=== PATIENT | male | born 1970 | race Caucasian/White ===

== ENCOUNTER 2017-05-23 13:06 | Emergency (ER) | payer OTHER ==
[~2017-05-23] VITALS: Ht 172.7 cm; Wt 62.5 kg
[2017-05-23 14:03] LABS: BASOPHIL COUNT 0.1 K/uL (0-0.1); EOSINOPHIL (%) 4.4 % (0-5); EOSINOPHIL COUNT 0.4 K/uL (0-0.3); HEMATOCRIT 29.8 % (38.0-50.0); HEMOGLOBIN 9.7 G/DL (12.5-16.6); IMMATURE GRANULOCYTE (%) 1.5 % (0.0-0.7); LYMPHOCYTE (%) 9.6 % (15-42); LYMPHOCYTE COUNT 0.9 K/uL (1.0-2.8); MCH 29.7 PG (29.0-34.0); MCHC 32.6 G/DL (30.0-36.0); MCV 91.1 FL (86-99); MONOCYTE (%) 12.6 % (3-12); MONOCYTE COUNT 1.1 K/uL (0-0.8); NEUTROPHIL (%) 70.9 % (45-76); NEUTROPHIL COUNT 6.3 K/uL (1.8-6.4); PLATELET COUNT 325 K/uL (156-360); RBC DIS.WIDTH-CV 14.8 % (11.8-14.6); RBC DIS.WIDTH-SD 48.8 % (39-53); RED BLOOD COUNT 3.27 M/uL (4.00-5.50); WHITE BLOOD COUNT 8.9 K/uL (4.1-10.2)
[2017-05-23 14:11] LABS: CHLORIDE 100 mEq/L (99-109); POTASSIUM 3.5 mEq/L (3.7-5.4); SODIUM 137 mEq/L (136-147)
[2017-05-23 14:13] LABS: GLUCOSE 87 mg/dL (70-99)
[2017-05-23 14:17] LABS: CREATININE 2.7 mg/dL (0.6-1.3); GFR ESTIMATE (CALCULATED) 27 mL/min/ (58.99-99999)
[2017-05-23 14:18] LABS: UREA NITROGEN (BUN) 65 mg/dL (9-23)
[2017-05-23 17:29] LABS: APPEARANCE SL.HAZY ((CLEAR)); BILIRUBIN NEGATIVE; BLOOD MODERATE; COLOR YELLOW ((YELLOW)); GLUCOSE (STRIP) >=500; KETONES NEGATIVE; LEUKOCYTES LARGE; NITRITE NEGATIVE; PROTEIN (STRIP) 100; SPECIFIC GRAVITY 1.007 (1.000-1.030); UROBILINOGEN 0.2 MG/DL (0.2-1.0)
[2017-05-23 17:34] LABS: BACTERIA RARE /HPF; EPITHELIAL CELLS NONE SEEN /HPF; MUCUS TRACE /LPF; RED BLOOD CELLS 40-50 /HPF (0-5); UCUL ADDED? YES; WHITE BLOOD CELLS TNTC /HPF (0-5)
[2017-05-23] MEDS ORDERED: CIPRO500 MG PO (19:22)
[2017-05-23 22:07] VITALS: BP 177/97
== END 2017-05-23 22:26 ==
LOC: EME 13:06
PROVIDERS: Emergency Medicine
PROC: 0T9B70Z Drainage of Bladder with Drainage Device, Via Natural or Artificial Opening (ICD-10-PCS; principal; 2017-05-23)
DX: N39.0 Urinary tract infection, site not specified (principal); I12.0 Hypertensive chronic kidney disease with stage 5 chronic kidney disease or end stage renal disease; E11.22 Type 2 diabetes mellitus with diabetic chronic kidney disease; N18.6 End stage renal disease; T83.098A Other mechanical complication of other urinary catheter, initial encounter; Z99.2 Dependence on renal dialysis; G82.50 Quadriplegia, unspecified; Z99.11 Dependence on respirator [ventilator] status; E87.70 Fluid overload, unspecified; J90 Pleural effusion, not elsewhere classified; Z87.891 Personal history of nicotine dependence; J96.10 Chronic respiratory failure, unspecified whether with hypoxia or hypercapnia; J45.909 Unspecified asthma, uncomplicated; F32.9 Major depressive disorder, single episode, unspecified; K21.9 Gastro-esophageal reflux disease without esophagitis; Z86.73 Personal history of transient ischemic attack (TIA), and cerebral infarction without residual deficits
CPT/HCPCS: 74176; 80048; 81003; 85025; 87070; 87077; 87086 GA; 87147; 87186; 87205; 94002; 99281; 99285

== ENCOUNTER 2017-06-25 04:11 | Inpatient (IN) | payer OTHER ==
[~2017-06-25] VITALS: Ht 177.8 cm; Wt 63.7 kg
[~2017-06-25 04:11] MED LIST: CIPRO500 MG PO
[2017-06-25 04:44] LABS: BASE EXCESS 7.2 mEq/L (-3 to +3); CARBOXY HGB 2.4 % (0-5); METHEMOGLOBIN 0.9 % (0-1.5); PCO2 46 mm Hg (35-45); PO2 84 mm Hg (80-100); SITE LR; pH 7.45 (7.35-7.45)
[2017-06-25 04:45] LABS: COMMENTS - BLOOD GASES C+; DEVICE VENT; FI02 30 %; MECHANICAL RATE 12 resp/min; MODE SIMV; PEEP 5 CM/H20; PRES. SUPPORT 10 CM/H2O; TIDAL VOLUME 400 ML; TOTAL RESP RATE 17 resp/min
[2017-06-25 05:04] LABS: BASOPHIL (%) 0.8 % (0-1); BASOPHIL COUNT 0.1 K/uL (0-0.1); EOSINOPHIL (%) 7.5 % (0-5); EOSINOPHIL COUNT 0.8 K/uL (0-0.3); HEMATOCRIT 32.4 % (38.0-50.0); HEMOGLOBIN 10.4 G/DL (12.5-16.6); IMMATURE GRANULOCYTE (%) 0.7 % (0.0-0.7); LYMPHOCYTE COUNT 0.6 K/uL (1.0-2.8); MCH 30.1 PG (29.0-34.0); MCHC 32.1 G/DL (30.0-36.0); MCV 93.6 FL (86-99); MONOCYTE (%) 6.2 % (3-12); MONOCYTE COUNT 0.7 K/uL (0-0.8); NEUTROPHIL (%) 78.8 % (45-76); NEUTROPHIL COUNT 8.3 K/uL (1.8-6.4); PLATELET COUNT 227 K/uL (156-360); RBC DIS.WIDTH-CV 14.5 % (11.8-14.6); RBC DIS.WIDTH-SD 49.7 % (39-53); RED BLOOD COUNT 3.46 M/uL (4.00-5.50); WHITE BLOOD COUNT 10.5 K/uL (4.1-10.2)
[2017-06-25 05:09] LABS: APPEARANCE TURBID ((CLEAR)); BILIRUBIN NEGATIVE; BLOOD SMALL; COLOR YELLOW ((YELLOW)); GLUCOSE (STRIP) >=500; KETONES NEGATIVE; LEUKOCYTES LARGE; NITRITE NEGATIVE; PROTEIN (STRIP) >=500; SPECIFIC GRAVITY 1.013 (1.000-1.030); UROBILINOGEN 0.2 MG/DL (0.2-1.0)
[2017-06-25 05:16] LABS: ALBUMIN 2.6 g/dL (3.2-4.8)
[2017-06-25 05:17] LABS: CHLORIDE 92 mEq/L (99-109); POTASSIUM 4.4 mEq/L (3.7-5.4); SODIUM 132 mEq/L (136-147)
[2017-06-25 05:19] LABS: GLUCOSE 203 mg/dL (70-99); TOTAL PROTEIN 7.1 g/dL (6.4-8.3)
[2017-06-25 05:21] LABS: TOTAL BILIRUBIN 1.1 mg/dL (0.0-1.0)
[2017-06-25 05:22] LABS: ALKALINE PHOSPHATASE 1307 IU/L (3-129)
[2017-06-25 05:23] LABS: CREATININE 2.6 mg/dL (0.6-1.3); GFR ESTIMATE (CALCULATED) 29 mL/min/ (58.99-99999)
[2017-06-25 05:24] LABS: AST (GOT) 35 IU/L (2-34); UREA NITROGEN (BUN) 97 mg/dL (9-23)
[2017-06-25 05:25] LABS: ALT (GPT) 73 IU/L (3-49)
[2017-06-25 05:26] LABS: TROP-I INTERPRETATION NEGATIVE; TROPONIN-I 0.01 ng/mL (0.0-0.30)
[2017-06-25 05:33] LABS: WHITE BLOOD CELLS TNTC /HPF (0-5)
[2017-06-25 05:34] LABS: UCUL ADDED? YES
[2017-06-25 05:36] LABS: URINE COMMENT FIELD OBSCURED BY
[2017-06-25] MEDS ORDERED: NOVOLOG PE100 UNITS/ SC (07:46)
[2017-06-25] MEDS ORDERED: ZESTRIL10 MG GT (07:48)
[2017-06-25] MEDS ORDERED: CARDURA2 M1 GT (07:48)
[2017-06-25] MEDS ORDERED: JUVEN PACKET1 EAC1 GT (07:50)
[2017-06-25] MEDS ORDERED: NORVASC10 MG GT (07:52)
[2017-06-25] MEDS ORDERED: ZOFRAN4 MG GT (07:56)
[2017-06-25] MEDS ORDERED: PERIDEX473 ML MM (07:58)
[2017-06-25] MEDS ORDERED: RENVELA0.8 GM GT (07:59)
[2017-06-25] MEDS ORDERED: NEPRO CARB STE237 ML PO (08:00)
[2017-06-25 12:31] LABS: TROP-I INTERPRETATION NEGATIVE; TROPONIN-I 0.02 ng/mL (0.0-0.30)
[2017-06-25 17:04] VITALS: BP 152/82
[2017-06-25 18:15] LABS: TROP-I INTERPRETATION NEGATIVE; TROPONIN-I < 0.01 ng/mL (0.0-0.30)
[2017-06-25 19:00] VITALS: BP 152/73
[2017-06-25 22:00] VITALS: BP 159/83
[2017-06-25 23:00] VITALS: BP 163/82
[2017-06-26] VITALS (23 sets, daily range): BP systolic 125–167; BP diastolic 67–91
[2017-06-26 05:59] LABS: BASOPHIL COUNT 0.1 K/uL (0-0.1); EOSINOPHIL (%) 7.3 % (0-5); EOSINOPHIL COUNT 0.5 K/uL (0-0.3); HEMOGLOBIN 10.1 G/DL (12.5-16.6); LYMPHOCYTE (%) 9.2 % (15-42); LYMPHOCYTE COUNT 0.6 K/uL (1.0-2.8); MCH 29.6 PG (29.0-34.0); MCHC 31.6 G/DL (30.0-36.0); MCV 93.8 FL (86-99); MONOCYTE (%) 7.7 % (3-12); MONOCYTE COUNT 0.5 K/uL (0-0.8); NEUTROPHIL (%) 73.8 % (45-76); PLATELET COUNT 238 K/uL (156-360); RBC DIS.WIDTH-CV 14.6 % (11.8-14.6); RBC DIS.WIDTH-SD 49.9 % (39-53); RED BLOOD COUNT 3.41 M/uL (4.00-5.50); WHITE BLOOD COUNT 6.7 K/uL (4.1-10.2)
[2017-06-26 06:14] LABS: A/G RATIO 0.6 (1.1-1.8); ALBUMIN 2.4 G/DL (3.4-5.0); CHLORIDE 86 MEQ/L (99-109); CREATININE 2.9 MG/DL (0.6-1.3); GFR ESTIMATE (CALCULATED) 25 mL/min/ (58.99-99999); GLOBULINS 3.8 G/DL (2.3-3.5); GLUCOSE 175 mg/dL (70-99); TOTAL PROTEIN 6.2 G/DL (6.4-8.2); UREA NITROGEN (BUN) 95 mg/dL (9-23)
[2017-06-26 06:17] LABS: SODIUM 123 MEQ/L (136-147)
[2017-06-26 07:04] LABS: ALKALINE PHOSPHATASE 958 IU/L (3-129); ALT (GPT) 51 IU/L (3-49); AST (GOT) 21 IU/L (2-34); DIRECT BILIRUBIN 0.6 mg/dL (0.0-0.3); TOTAL BILIRUBIN 0.9 MG/DL (0.0-1.0)
[2017-06-26 08:52] LABS: ERTH.SED.RATE 71 MM/HR (0-15)
[2017-06-26 10:20] LABS: HEMOGLOBIN A1c (GLYCOHEMOGLOB) 5.5 % (Below 5.7)
[2017-06-26 11:06] LABS: ALBUMIN 2.4 G/DL (3.2-4.8); TOTAL PROTEIN 6.2 G/DL (6.4-8.3)
[2017-06-26 11:36] LABS: HEPATITIS B SURFACE ANTIBODY Nonreactive
[2017-06-27] VITALS (15 sets, daily range): BP systolic 136–158; BP diastolic 72–93
[2017-06-27 00:48] LABS: APPEARANCE TURBID ((CLEAR)); BILIRUBIN NEGATIVE; BLOOD MODERATE; COLOR AMBER ((YELLOW)); GLUCOSE (STRIP) >=500; KETONES NEGATIVE; LEUKOCYTES LARGE; NITRITE NEGATIVE; PROTEIN (STRIP) 100; SPECIFIC GRAVITY 1.007 (1.000-1.030); UROBILINOGEN 0.2 MG/DL (0.2-1.0)
[2017-06-27 01:09] LABS: EPITHELIAL CELLS NONE SEEN /HPF; RED BLOOD CELLS 20-30 /HPF (0-5); WHITE BLOOD CELLS TNTC /HPF (0-5)
[2017-06-27 01:10] LABS: BACTERIA 2+ /HPF; MUCUS RARE /LPF
[2017-06-27 05:06] LABS: BASOPHIL COUNT 0.1 K/uL (0-0.1); EOSINOPHIL COUNT 0.6 K/uL (0-0.3); HEMATOCRIT 31.8 % (38.0-50.0); HEMOGLOBIN 10.2 G/DL (12.5-16.6); IMMATURE GRANULOCYTE (%) 1.2 % (0.0-0.7); LYMPHOCYTE (%) 10.5 % (15-42); LYMPHOCYTE COUNT 0.9 K/uL (1.0-2.8); MCH 29.9 PG (29.0-34.0); MCHC 32.1 G/DL (30.0-36.0); MCV 93.3 FL (86-99); MONOCYTE (%) 9.8 % (3-12); MONOCYTE COUNT 0.8 K/uL (0-0.8); NEUTROPHIL (%) 70.5 % (45-76); NEUTROPHIL COUNT 5.8 K/uL (1.8-6.4); PLATELET COUNT 248 K/uL (156-360); RBC DIS.WIDTH-CV 14.7 % (11.8-14.6); RBC DIS.WIDTH-SD 49.3 % (39-53); RED BLOOD COUNT 3.41 M/uL (4.00-5.50); WHITE BLOOD COUNT 8.3 K/uL (4.1-10.2)
[2017-06-27 05:44] LABS: CHLORIDE 96 mEq/L (99-109); POTASSIUM 3.7 mEq/L (3.7-5.4)
[2017-06-27 05:45] LABS: MAGNESIUM 1.9 mg/dL (1.3-2.7)
[2017-06-27 05:46] LABS: GLUCOSE 178 mg/dL (70-99)
[2017-06-27 05:47] LABS: SODIUM 131 mEq/L (136-147)
[2017-06-27 05:50] LABS: GFR ESTIMATE (CALCULATED) 36 mL/min/ (58.99-99999); PHOSPHORUS 4.2 mg/dL (2.5-4.9)
[2017-06-27 05:51] LABS: UREA NITROGEN (BUN) 49 mg/dL (9-23)
[2017-06-27 05:58] LABS: CREATININE 2.1 mg/dL (0.6-1.3)
[2017-06-27 11:20] LABS: C DIFF TOXIN NEGATIVE (NEGATIVE)
[2017-06-27 12:53] LABS: URINE TOTAL PROTEIN 646 MG/DL (0-10)
[2017-06-27 15:40] LABS: ANTI-SMOOTH MUSCLE (Actin)+ 28 U (<20); MITOCHONDRIAL (M2) ANTIBODIES+ <=20.0 U (<=20.0)
[2017-06-28 07:57] LABS: ALBUMIN 2.29 G/DL (3.6-4.9); ALPHA-1 GLOBULIN 0.37 G/DL (0.15-0.40); ALPHA-2 GLOBULIN 0.67 G/DL (0.45-0.85); BETA-GLOBULIN 0.87 G/DL (0.65-1.15)
[2017-07-12] MEDS ORDERED: FULL SPECTRUM0.8 MG PO (11:33)
[2017-07-12] MEDS ORDERED: CARDURA2 M1 GT (11:34)
[2017-07-12] MEDS ORDERED: FULL SPECTRUM0.8 MG GT (11:34)
[2017-07-12] MEDS ORDERED: CULTURELLE CAP1 EACH GT (11:35)
[2017-07-12] MEDS ORDERED: FLOMAX0.4 MG GT (11:36)
[2017-07-12] MEDS ORDERED: BACLOFEN10 MG GT (11:37)
[2017-07-12] MEDS ORDERED: NEURONTIN100 MG GT (11:37)
[2017-07-12] MEDS ORDERED: KEPPRA100 MG/1 M GT (11:38)
[2017-07-12] MEDS ORDERED: ACID CONTROLLER20 MG GT (11:38)
[2017-07-12] MEDS ORDERED: LANTUS 10100 UNITS/ SC (11:42)
[2017-07-12] MEDS ORDERED: NOVOLOG 10100 UNITS/ SC (11:43)
== END 2017-06-27 15:47 | disposition designated cancer center or children's hospital (05) | DRG 689 ==
LOC: EME → EDBD 04:11 → EDOF 08:11 → ENRESERV 08:11 → 4WEST 08:11 → ENRESERV 08:28 → 4WEST 16:51
PROVIDERS: Emergency Medicine; Internal Medicine; Internal Medicine Critical Care Medicine; Internal Medicine Gastroenterology; Internal Medicine Nephrology; Obstetrics & Gynecology
DX: N39.0 Urinary tract infection, site not specified (principal); G93.41 Metabolic encephalopathy; D63.1 Anemia in chronic kidney disease; E10.22 Type 1 diabetes mellitus with diabetic chronic kidney disease; Z93.1 Gastrostomy status; Z93.0 Tracheostomy status; Z99.11 Dependence on respirator [ventilator] status; Z99.2 Dependence on renal dialysis; N18.6 End stage renal disease; Z79.4 Long term (current) use of insulin; Z87.440 Personal history of urinary (tract) infections; J96.10 Chronic respiratory failure, unspecified whether with hypoxia or hypercapnia; F32.9 Major depressive disorder, single episode, unspecified; G37.2 Central pontine myelinolysis; I12.0 Hypertensive chronic kidney disease with stage 5 chronic kidney disease or end stage renal disease; D80.1 Nonfamilial hypogammaglobulinemia; J90 Pleural effusion, not elsewhere classified; K80.21 Calculus of gallbladder without cholecystitis with obstruction; H54.7 Unspecified visual loss; E87.1 Hypo-osmolality and hyponatremia; Z87.891 Personal history of nicotine dependence; E87.0 Hyperosmolality and hypernatremia; G82.50 Quadriplegia, unspecified; I69.30 Unspecified sequelae of cerebral infarction; K21.9 Gastro-esophageal reflux disease without esophagitis; R18.8 Other ascites; J45.909 Unspecified asthma, uncomplicated
CPT/HCPCS: 36600; 70450; 71045; 71250; 74176; 76705; 80048; 80053; 80076; 81003; 82140; 82803; 82948; 83036; 83516 90; 83605; 83735; 84100; 84165; 84166; 84484; 85025; 85027; 85652; 86038; 86235; 86256 90; 86706; 87040; 87070; 87077; 87081; 87086; 87106; 87147; 87186; 87205; 87493; 87641; 93005; 94002; 94003; 94760; 95819; 99202; 99281; 99285; A6214; J0696; J1644; J1940; J7040

== ENCOUNTER 2017-07-01 10:37 | Emergency (ER) | payer OTHER ==
[~2017-07-01] VITALS: Ht 177.8 cm; Wt 60.1 kg
[~2017-07-01 10:37] MED LIST changes: +CARDURA2 M1 GT; +JUVEN PACKET1 EAC1 GT; +NEPRO CARB STE237 ML PO; +NORVASC10 MG GT; +NOVOLOG PE100 UNITS/ SC; +PERIDEX473 ML MM; +RENVELA0.8 GM GT; +ZESTRIL10 MG GT; +ZOFRAN4 MG GT
[2017-07-01 11:03] LABS: BASE EXCESS 7.3 mEq/L (-3 to +3); CARBOXY HGB 2.3 % (0-5); METHEMOGLOBIN 1.2 % (0-1.5); PCO2 45 mm Hg (35-45); PO2 76 mm Hg (80-100); pH 7.46 (7.35-7.45)
[2017-07-01 11:05] LABS: COMMENTS - BLOOD GASES A+C+; DEVICE 980; FI02 28 %; MECHANICAL RATE 12 resp/min; MODE SIMV; SITE LR
[2017-07-01 11:06] LABS: PEEP 5 CM/H20; PRES. SUPPORT 10 CM/H2O; TIDAL VOLUME 400 ML; TOTAL RESP RATE 15 resp/min
[2017-07-01 11:18] LABS: BASOPHIL (%) 1.1 % (0-1); BASOPHIL COUNT 0.1 K/uL (0-0.1); EOSINOPHIL (%) 10.2 % (0-5); HEMATOCRIT 34.8 % (38.0-50.0); IMMATURE GRANULOCYTE (%) 1.3 % (0.0-0.7); LYMPHOCYTE (%) 8.1 % (15-42); LYMPHOCYTE COUNT 0.8 K/uL (1.0-2.8); MCH 29.7 PG (29.0-34.0); MCHC 31.6 G/DL (30.0-36.0); MCV 94.1 FL (86-99); MONOCYTE (%) 8.4 % (3-12); MONOCYTE COUNT 0.8 K/uL (0-0.8); NEUTROPHIL (%) 70.9 % (45-76); NEUTROPHIL COUNT 6.6 K/uL (1.8-6.4); PLATELET COUNT 206 K/uL (156-360); RBC DIS.WIDTH-CV 14.8 % (11.8-14.6); RBC DIS.WIDTH-SD 50.6 % (39-53); WHITE BLOOD COUNT 9.3 K/uL (4.1-10.2)
[2017-07-01 11:26] LABS: ALBUMIN 2.7 g/dL (3.2-4.8); INTER. NORMALIZED RATIO 1.1
[2017-07-01 11:27] LABS: CHLORIDE 91 mEq/L (99-109); SODIUM 131 mEq/L (136-147)
[2017-07-01 11:28] LABS: PTT 34.3 SEC (25-37)
[2017-07-01 11:29] LABS: GLUCOSE 222 mg/dL (70-99); TOTAL PROTEIN 7.4 g/dL (6.4-8.3)
[2017-07-01 11:33] LABS: CREATININE 2.3 mg/dL (0.6-1.3); GFR ESTIMATE (CALCULATED) 33 mL/min/ (58.99-99999)
[2017-07-01 11:34] LABS: AST (GOT) 21 IU/L (2-34); UREA NITROGEN (BUN) 62 mg/dL (9-23)
[2017-07-01 11:35] LABS: ALT (GPT) 45 IU/L (3-49)
[2017-07-01 11:36] LABS: CREATINE KINASE 18 IU/L (1-294); TOTAL CK 18 IU/L (1-294)
[2017-07-01 11:38] LABS: ALKALINE PHOSPHATASE 882 IU/L (3-129); TOTAL BILIRUBIN 0.7 mg/dL (0.0-1.0); TROP-I INTERPRETATION NEGATIVE; TROPONIN-I 0.02 ng/mL (0.0-0.30)
[2017-07-01 11:41] LABS: CK-MB 2.9 ng/mL (0.0-4.9); CKMB RELATIVE INDEX 16.1 (0.0-3.9)
[2017-07-01 16:40] VITALS: BP 142/81
== END 2017-07-01 16:41 ==
LOC: EME → EDBD 10:37 → EME 16:41
PROVIDERS: Emergency Medicine
DX: J90 Pleural effusion, not elsewhere classified (principal); G82.50 Quadriplegia, unspecified; Z93.0 Tracheostomy status; Z99.11 Dependence on respirator [ventilator] status; R40.3 Persistent vegetative state; Z93.1 Gastrostomy status; E11.22 Type 2 diabetes mellitus with diabetic chronic kidney disease; I12.0 Hypertensive chronic kidney disease with stage 5 chronic kidney disease or end stage renal disease; N18.6 End stage renal disease; Z99.2 Dependence on renal dialysis; Z86.73 Personal history of transient ischemic attack (TIA), and cerebral infarction without residual deficits; Z79.4 Long term (current) use of insulin; Z87.891 Personal history of nicotine dependence
CPT/HCPCS: 36600; 70450; 70551; 71045; 80053; 82550; 82553; 82803; 84484; 85025; 85610; 85730; 87070; 87077; 87147; 87186; 87205; 93005; 94002; 99281; 99285

== ENCOUNTER 2017-07-11 14:33 | Emergency (ER) | payer OTHER ==
[~2017-07-11] VITALS: Ht 167.6 cm; Wt 59.2 kg
[2017-07-11 16:51] LABS: BASOPHIL (%) 0.9 % (0-1); BASOPHIL COUNT 0.1 K/uL (0-0.1); EOSINOPHIL (%) 6.7 % (0-5); EOSINOPHIL COUNT 0.6 K/uL (0-0.3); HEMATOCRIT 35.4 % (38.0-50.0); HEMOGLOBIN 11.4 G/DL (12.5-16.6); IMMATURE GRANULOCYTE (%) 1.5 % (0.0-0.7); LYMPHOCYTE (%) 8.8 % (15-42); LYMPHOCYTE COUNT 0.7 K/uL (1.0-2.8); MCH 30.5 PG (29.0-34.0); MCHC 32.2 G/DL (30.0-36.0); MCV 94.7 FL (86-99); MONOCYTE (%) 13.5 % (3-12); MONOCYTE COUNT 1.1 K/uL (0-0.8); NEUTROPHIL (%) 68.6 % (45-76); NEUTROPHIL COUNT 5.8 K/uL (1.8-6.4); PLATELET COUNT 226 K/uL (156-360); RBC DIS.WIDTH-CV 15.4 % (11.8-14.6); RBC DIS.WIDTH-SD 53.5 % (39-53); RED BLOOD COUNT 3.74 M/uL (4.00-5.50); WHITE BLOOD COUNT 8.5 K/uL (4.1-10.2)
[2017-07-11 16:56] LABS: INTER. NORMALIZED RATIO 1.2
[2017-07-11 17:00] LABS: ALBUMIN 2.7 g/dL (3.2-4.8); CHLORIDE 91 mEq/L (99-109); POTASSIUM 4.5 mEq/L (3.7-5.4); SODIUM 131 mEq/L (136-147)
[2017-07-11 17:02] LABS: GLUCOSE 122 mg/dL (70-99); TOTAL PROTEIN 7.5 g/dL (6.4-8.3)
[2017-07-11 17:04] LABS: TOTAL BILIRUBIN 0.7 mg/dL (0.0-1.0)
[2017-07-11 17:06] LABS: ALKALINE PHOSPHATASE 911 IU/L (3-129); CREATININE 2.9 mg/dL (0.6-1.3); GFR ESTIMATE (CALCULATED) 25 mL/min/ (58.99-99999)
[2017-07-11 17:07] LABS: UREA NITROGEN (BUN) 97 mg/dL (9-23)
[2017-07-11 17:08] LABS: AST (GOT) 49 IU/L (2-34)
[2017-07-11 17:09] LABS: ALT (GPT) 107 IU/L (3-49)
[2017-07-11 17:12] LABS: TROP-I INTERPRETATION NEGATIVE; TROPONIN-I < 0.01 ng/mL (0.0-0.30)
[2017-07-11 17:20] LABS: APPEARANCE TURBID ((CLEAR)); BILIRUBIN NEGATIVE; BLOOD SMALL; COLOR YELLOW ((YELLOW)); GLUCOSE (STRIP) NEGATIVE; KETONES NEGATIVE; LEUKOCYTES LARGE; NITRITE NEGATIVE; PROTEIN (STRIP) >=500; SPECIFIC GRAVITY 1.019 (1.000-1.030); UROBILINOGEN 0.2 MG/DL (0.2-1.0)
[2017-07-11 17:54] LABS: UCUL ADDED? YES; WHITE BLOOD CELLS TNTC /HPF (0-5)
[2017-07-11] MEDS ORDERED: AZITHROMYC200 MG/5 M PO (18:21)
[2017-07-11] MEDS ORDERED: CEFIXIME200 MG/5 M PO (18:21)
[2017-07-11 22:27] VITALS: BP 125/75
[2017-07-12] MEDS ORDERED: FULL SPECTRUM0.8 MG PO (11:33)
[2017-07-12] MEDS ORDERED: CARDURA2 M1 GT (11:34)
[2017-07-12] MEDS ORDERED: FULL SPECTRUM0.8 MG GT (11:34)
[2017-07-12] MEDS ORDERED: CULTURELLE CAP1 EACH GT (11:35)
[2017-07-12] MEDS ORDERED: FLOMAX0.4 MG GT (11:36)
[2017-07-12] MEDS ORDERED: NEURONTIN100 MG GT (11:37)
[2017-07-12] MEDS ORDERED: BACLOFEN10 MG GT (11:37)
[2017-07-12] MEDS ORDERED: ACID CONTROLLER20 MG GT (11:38)
[2017-07-12] MEDS ORDERED: KEPPRA100 MG/1 M GT (11:38)
[2017-07-12] MEDS ORDERED: LANTUS 10100 UNITS/ SC (11:42)
[2017-07-12] MEDS ORDERED: NOVOLOG 10100 UNITS/ SC (11:43)
== END 2017-07-11 22:29 ==
LOC: EME 14:33
PROVIDERS: Emergency Medicine Emergency Medical Services
DX: J01.30 Acute sphenoidal sinusitis, unspecified (principal); J69.0 Pneumonitis due to inhalation of food and vomit; N39.0 Urinary tract infection, site not specified; F03.90 Unspecified dementia, unspecified severity, without behavioral disturbance, psychotic disturbance, mood disturbance, and anxiety; K80.20 Calculus of gallbladder without cholecystitis without obstruction; J90 Pleural effusion, not elsewhere classified; J44.9 Chronic obstructive pulmonary disease, unspecified; G82.50 Quadriplegia, unspecified; Z93.0 Tracheostomy status; Z93.1 Gastrostomy status; K21.9 Gastro-esophageal reflux disease without esophagitis; I12.9 Hypertensive chronic kidney disease with stage 1 through stage 4 chronic kidney disease, or unspecified chronic kidney disease; N18.9 Chronic kidney disease, unspecified; R56.9 Unspecified convulsions; F32.9 Major depressive disorder, single episode, unspecified; Z86.73 Personal history of transient ischemic attack (TIA), and cerebral infarction without residual deficits; Z87.891 Personal history of nicotine dependence; Z87.440 Personal history of urinary (tract) infections
CPT/HCPCS: 70450; 71045; 74176; 80053; 81003; 83605; 83880; 84484; 85025; 85610; 85730; 87040; 87086; 87106; 93005; 94002; 99281; 99285; J0456; J0696; J7040

== ENCOUNTER → 2017-07-12 | Outpatient (CLI) | payer OTHER ==
[~2017-07-12] MED LIST changes: +ACID CONTROLLER20 MG GT; +AZITHROMYC200 MG/5 M PO; +BACLOFEN10 MG GT; +CEFIXIME200 MG/5 M PO; +CULTURELLE CAP1 EACH GT; +FLOMAX0.4 MG GT; +FULL SPECTRUM0.8 MG GT; +FULL SPECTRUM0.8 MG PO; +KEPPRA100 MG/1 M GT; +LANTUS 10100 UNITS/ SC; +NEURONTIN100 MG GT; +NOVOLOG 10100 UNITS/ SC
[2017-07-12 12:16] LABS: TYPE OF FLUID PLEURAL
[2017-07-12 12:42] LABS: APPEARANCE SL. HAZY-YELLOW; BODY FLUID RBC'S 1000 /MM^3 (0-100); BODY FLUID WBC'S 660 /MM^3 (0-500)
[2017-07-12 13:13] LABS: BODY FLUID EOSINOPHILS 79 % (0-25); MONONUCLEAR WBC'S 4 %; POLYNUCLEAR WBC'S 17 % (0-25)
[2017-07-12 13:14] LABS: BODY FLUID GLUCOSE 147 MG/DL; BODY FLUID LDH 111 IU/L
[2017-07-12 13:15] LABS: GLUCOSE 130 mg/dL (70-99); LACTATE DEHYDROGENASE 150 IU/L (20-246); TOTAL PROTEIN 7.5 G/DL (6.4-8.3)
== END | disposition designated cancer center or children's hospital (05) ==
LOC: RAD 10:59 → EDSTATUS 11:00 → RAD 11:00
PROVIDERS: Internal Medicine
PROC: 0W993ZZ Drainage of Right Pleural Cavity, Percutaneous Approach (ICD-10-PCS; principal; 2017-07-12)
DX: J90 Pleural effusion, not elsewhere classified (principal); J96.01 Acute respiratory failure with hypoxia
CPT/HCPCS: 76942; 82945; 82947; 83615; 83615 91; 84155; 84157; 87070; 87116; 87205; 87206; 88108; 88305; 89051; 94799

== ENCOUNTER 2017-07-27 10:38 | Inpatient (IN) | payer OTHER ==
[~2017-07-27] VITALS: Ht 167.6 cm; Wt 59.0 kg
[~2017-07-27 10:38] MED LIST changes: +ZOFRAN ODT4 MG GT; -ZOFRAN4 MG GT
[2017-07-27 11:11] LABS: BASOPHIL (%) 0.5 % (0-1); BASOPHIL COUNT 0.1 K/uL (0-0.1); EOSINOPHIL (%) 3.7 % (0-5); EOSINOPHIL COUNT 0.5 K/uL (0-0.3); HEMATOCRIT 34.5 % (38.0-50.0); HEMOGLOBIN 10.9 G/DL (12.5-16.6); LYMPHOCYTE (%) 6.2 % (15-42); LYMPHOCYTE COUNT 0.8 K/uL (1.0-2.8); MCH 29.9 PG (29.0-34.0); MCHC 31.6 G/DL (30.0-36.0); MCV 94.5 FL (86-99); NEUTROPHIL (%) 79.6 % (45-76); NEUTROPHIL COUNT 10.2 K/uL (1.8-6.4); PLATELET COUNT 185 K/uL (156-360); RBC DIS.WIDTH-SD 48.7 % (39-53); RED BLOOD COUNT 3.65 M/uL (4.00-5.50); WHITE BLOOD COUNT 12.8 K/uL (4.1-10.2)
[2017-07-27 11:20] LABS: ALBUMIN 2.2 g/dL (3.2-4.8); CHLORIDE 100 mEq/L (99-109); INTER. NORMALIZED RATIO 1.4; POTASSIUM 4.1 mEq/L (3.7-5.4); SODIUM 133 mEq/L (136-147)
[2017-07-27 11:23] LABS: GLUCOSE 161 mg/dL (70-99); TOTAL PROTEIN 6.8 g/dL (6.4-8.3)
[2017-07-27 11:25] LABS: TOTAL BILIRUBIN 4.7 mg/dL (0.0-1.0)
[2017-07-27 11:26] LABS: ALKALINE PHOSPHATASE 2450 IU/L (3-129); CREATININE 1.7 mg/dL (0.6-1.3); GFR ESTIMATE (CALCULATED) 47 mL/min/ (58.99-99999)
[2017-07-27 11:27] LABS: UREA NITROGEN (BUN) 51 mg/dL (9-23)
[2017-07-27 11:28] LABS: AST (GOT) 69 IU/L (2-34)
[2017-07-27 11:29] LABS: ALT (GPT) 122 IU/L (3-49)
[2017-07-27 11:30] LABS: LIPASE 83 U/L (1.0-51.0)
[2017-07-27] MEDS ORDERED: QUESTRAN PACKET4 GM GT (15:28)
[2017-07-27] MEDS ORDERED: FLUCONAZOL40 MG/1 ML GT (15:29)
[2017-07-27] MEDS ORDERED: CATAPRES0.2 MG PO (15:30)
[2017-07-27] MEDS ORDERED: CARVEDILOL25 MG GT (15:31)
[2017-07-27] MEDS ORDERED: PAIN RELIE160 MG/52 GT (15:32)
[2017-07-27] MEDS ORDERED: DUONEB 2.5-0.5 M3 ML AEROSOL (15:42)
[2017-07-27] MEDS ORDERED: SANTYL30 GM TP (15:44)
[2017-07-27 16:15] VITALS: BP 112/71
[2017-07-27 16:30] VITALS: BP 117/71
[2017-07-27 20:00] VITALS: BP 119/71
[2017-07-27 22:00] VITALS: BP 107/65
[2017-07-28] VITALS (16 sets, daily range): BP systolic 97–134; BP diastolic 56–75
[2017-07-28 05:28] LABS: HEMATOCRIT 33.6 % (38.0-50.0); HEMOGLOBIN 10.6 G/DL (12.5-16.6); MCH 29.6 PG (29.0-34.0); MCHC 31.5 G/DL (30.0-36.0); MCV 93.9 FL (86-99); PLATELET COUNT 203 K/uL (156-360); RBC DIS.WIDTH-CV 14.4 % (11.8-14.6); RBC DIS.WIDTH-SD 48.6 % (39-53); RED BLOOD COUNT 3.58 M/uL (4.00-5.50); WHITE BLOOD COUNT 10.6 K/uL (4.1-10.2)
[2017-07-28 06:10] LABS: ALBUMIN 2.1 G/DL (3.2-4.8); ALKALINE PHOSPHATASE 2274 IU/L (3-129); ALT (GPT) 121 IU/L (3-49); AST (GOT) 87 IU/L (2-34); CHLORIDE 97 MEQ/L (99-109); DIRECT BILIRUBIN 4.4 mg/dL (0.0-0.3); GFR ESTIMATE (CALCULATED) 30 mL/min/ (58.99-99999); POTASSIUM 4.2 MEQ/L (3.7-5.4); SODIUM 130 MEQ/L (136-147); TOTAL BILIRUBIN 5.9 MG/DL (0.0-1.0); TOTAL PROTEIN 6.2 G/DL (6.4-8.3); UREA NITROGEN (BUN) 64 mg/dL (9-23)
[2017-07-28 06:11] LABS: CREATININE 2.5 MG/DL (0.6-1.3); GLUCOSE 86 mg/dL (70-99)
[2017-07-28 21:41] LABS: C DIFF TOXIN NEGATIVE (NEGATIVE)
[2017-07-29] VITALS (9 sets, daily range): BP systolic 115–126; BP diastolic 62–72
[2017-07-29 05:44] LABS: HEMATOCRIT 34.9 % (38.0-50.0); HEMOGLOBIN 11.3 G/DL (12.5-16.6); MCH 30.1 PG (29.0-34.0); MCHC 32.4 G/DL (30.0-36.0); MCV 93.1 FL (86-99); PLATELET COUNT 216 K/uL (156-360); RBC DIS.WIDTH-CV 14.6 % (11.8-14.6); RBC DIS.WIDTH-SD 48.9 % (39-53); RED BLOOD COUNT 3.75 M/uL (4.00-5.50)
[2017-07-29 06:10] LABS: ABS NEUTROPHIL COUNT 8.2; ANISOCYTOSIS 2+; BAND NEUTROPHILS 0.9 % (0-8.0); EOSINOPHIL ABS CT 0; LYMPHOCYTES 3.5 % (15.0-45.0); MACROCYTES 2+; METAMYELOCYTES 0.9 %; MONOCYTES 0.8 % (0-9.0); MYELOCYTES 3.5 %; PLAT.SUFFICIENCY ADEQUATE; SEG.NEUTROPHILS 90.4 % (46.0-76.0)
[2017-07-29 08:29] LABS: ALBUMIN 2.1 g/dL (3.2-4.8); CHLORIDE 102 mEq/L (99-109); SODIUM 133 mEq/L (136-147)
[2017-07-29 08:30] LABS: POTASSIUM 5.8 mEq/L (3.7-5.4)
[2017-07-29 08:31] LABS: TOTAL PROTEIN 6.4 g/dL (6.4-8.3)
[2017-07-29 08:34] LABS: GLUCOSE 196 mg/dL (70-99); TOTAL BILIRUBIN 7.8 mg/dL (0.0-1.0)
[2017-07-29 08:35] LABS: ALKALINE PHOSPHATASE 2700 IU/L (3-129); GFR ESTIMATE (CALCULATED) 22 mL/min/ (58.99-99999)
[2017-07-29 08:36] LABS: CREATININE 3.2 mg/dL (0.6-1.3); UREA NITROGEN (BUN) 82 mg/dL (9-23)
[2017-07-29 08:38] LABS: ALT (GPT) 146 IU/L (3-49); AST (GOT) 107 IU/L (2-34)
[2017-07-30] VITALS (8 sets, daily range): BP systolic 110–129; BP diastolic 66–84
[2017-07-30 04:48] LABS: HEMATOCRIT 34.4 % (38.0-50.0); MCH 29.4 PG (29.0-34.0); PLATELET COUNT 233 K/uL (156-360); RBC DIS.WIDTH-CV 14.7 % (11.8-14.6); RED BLOOD COUNT 3.74 M/uL (4.00-5.50); WHITE BLOOD COUNT 8.6 K/uL (4.1-10.2)
[2017-07-30 05:01] LABS: CHLORIDE 97 mEq/L (99-109); SODIUM 135 mEq/L (136-147)
[2017-07-30 05:03] LABS: GLUCOSE 272 mg/dL (70-99); POTASSIUM 4.1 mEq/L (3.7-5.4)
[2017-07-30 05:07] LABS: GFR ESTIMATE (CALCULATED) 31 mL/min/ (58.99-99999)
[2017-07-30 05:08] LABS: CREATININE 2.4 mg/dL (0.6-1.3); UREA NITROGEN (BUN) 64 mg/dL (9-23)
[2017-07-30 07:15] LABS: ABS NEUTROPHIL COUNT 7.3; ANISOCYTOSIS 1+; ATYPICAL LYMPHOCYTE 2.6 %; BAND NEUTROPHILS 9.6 % (0-8.0); BASOPHILS 0.9 %; EOSINOPHIL ABS CT 0; LYMPHOCYTES 4.3 % (15.0-45.0); MACROCYTES 1+; METAMYELOCYTES 1.7 %; MONOCYTES 0.9 % (0-9.0); MYELOCYTES 4.3 %; SEG.NEUTROPHILS 75.7 % (46.0-76.0)
[2017-07-30 11:21] LABS: HEPATITIS B SURFACE ANTIBODY Nonreactive; HEPATITIS B SURFACE ANTIGEN Nonreactive
[2017-07-31] VITALS (11 sets, daily range): BP systolic 97–129; BP diastolic 60–77
[2017-07-31 05:18] LABS: HEMATOCRIT 37.5 % (38.0-50.0); MCH 29.3 PG (29.0-34.0); MCV 91.5 FL (86-99); PLATELET COUNT 235 K/uL (156-360); RBC DIS.WIDTH-CV 14.8 % (11.8-14.6); RBC DIS.WIDTH-SD 48.3 % (39-53); WHITE BLOOD COUNT 6.8 K/uL (4.1-10.2)
[2017-07-31 05:45] LABS: CHLORIDE 96 MEQ/L (99-109); GFR ESTIMATE (CALCULATED) 22 mL/min/ (58.99-99999); GLUCOSE 317 mg/dL (70-99); POTASSIUM 4.6 MEQ/L (3.7-5.4); SODIUM 134 MEQ/L (136-147); UREA NITROGEN (BUN) 90 mg/dL (9-23)
[2017-07-31 05:47] LABS: CREATININE 3.2 MG/DL (0.6-1.3)
[2017-07-31 05:52] LABS: ABS NEUTROPHIL COUNT 5.8; ANISOCYTOSIS 2+; BAND NEUTROPHILS 0.9 % (0-8.0); EOSINOPHIL ABS CT 0; HYPOCHROMASIA 1+; LYMPHOCYTES 2.6 % (15.0-45.0); MACROCYTES 2+; METAMYELOCYTES 2.6 %; MONOCYTES 3.5 % (0-9.0); MYELOCYTES 5.3 %; PLAT.SUFFICIENCY ADEQUATE; SEG.NEUTROPHILS 85.1 % (46.0-76.0); TARGET CELLS 1+
[2017-08-01] VITALS: BP 107/68
[2017-08-01 04:00] VITALS: BP 123/78
[2017-08-01 05:19] LABS: HEMATOCRIT 37.3 % (38.0-50.0); HEMOGLOBIN 11.9 G/DL (12.5-16.6); MCH 29.3 PG (29.0-34.0); MCHC 31.9 G/DL (30.0-36.0); MCV 91.9 FL (86-99); PLATELET COUNT 233 K/uL (156-360); RBC DIS.WIDTH-CV 14.8 % (11.8-14.6); RBC DIS.WIDTH-SD 49.1 % (39-53); RED BLOOD COUNT 4.06 M/uL (4.00-5.50); WHITE BLOOD COUNT 8.7 K/uL (4.1-10.2)
[2017-08-01 05:56] LABS: CHLORIDE 96 MEQ/L (99-109); GLUCOSE 262 mg/dL (70-99); SODIUM 134 MEQ/L (136-147); UREA NITROGEN (BUN) 65 mg/dL (9-23)
[2017-08-01 05:57] LABS: CREATININE 2.6 MG/DL (0.6-1.3); GFR ESTIMATE (CALCULATED) 29 mL/min/ (58.99-99999); POTASSIUM 3.4 MEQ/L (3.7-5.4)
[2017-08-01 06:22] LABS: ABS NEUTROPHIL COUNT 6.7; ANISOCYTOSIS 2+; BAND NEUTROPHILS 1.7 % (0-8.0); EOSINOPHIL ABS CT 0; HYPOCHROMASIA 1+; LYMPHOCYTES 5.3 % (15.0-45.0); MACROCYTES 2+; METAMYELOCYTES 1.7 %; MONOCYTES 12.3 % (0-9.0); MYELOCYTES 3.5 %; PLATELET CLUMPS PRESENT - PLATELET COUNT APPEARS ADQ.; SEG.NEUTROPHILS 75.5 % (46.0-76.0); TARGET CELLS 1+
[2017-08-01 08:00] VITALS: BP 122/81
[2017-08-01] MEDS ORDERED: PREDNISONE5 MG PO (11:22)
[2017-08-01] MEDS ORDERED: CEFEPIME HCL2 GM IV (11:22)
[2017-08-01 12:00] VITALS: BP 122/72
[2017-08-01 15:30] VITALS: BP 121/71
== END 2017-08-01 15:54 | disposition designated cancer center or children's hospital (05) | DRG 870 ==
LOC: EME 10:38 → 4WEST 14:55 → EDOF 14:55 → ENRESERV 15:01 → 4WEST 16:16 → ENRESERV 07-29 13:43 → CANRESERV 07-29 13:43 → ENRESERV 07-30 13:14 → 4WEST 08-01 15:54
PROVIDERS: Emergency Medicine; Internal Medicine Nephrology; Physician Assistant; Student in an Organized Health Care Education/Training Program
PROC: 0F9430Z Drainage of Gallbladder with Drainage Device, Percutaneous Approach (ICD-10-PCS; principal; 2017-07-27)
PROC: 5A1955Z Respiratory Ventilation, Greater than 96 Consecutive Hours (ICD-10-PCS; principal; 2017-07-27)
PROC: 5A1D70Z Performance of Urinary Filtration, Intermittent, Less than 6 Hours Per Day (ICD-10-PCS; 2017-07-29)
DX: A41.9 Sepsis, unspecified organism (principal); J15.212 Pneumonia due to Methicillin resistant Staphylococcus aureus; K80.00 Calculus of gallbladder with acute cholecystitis without obstruction; J96.21 Acute and chronic respiratory failure with hypoxia; L89.150 Pressure ulcer of sacral region, unstageable; J90 Pleural effusion, not elsewhere classified; K56.0 Paralytic ileus; G93.40 Encephalopathy, unspecified; I12.0 Hypertensive chronic kidney disease with stage 5 chronic kidney disease or end stage renal disease; Z99.11 Dependence on respirator [ventilator] status; G37.2 Central pontine myelinolysis; N18.6 End stage renal disease; E10.65 Type 1 diabetes mellitus with hyperglycemia; J98.11 Atelectasis; Y95 Nosocomial condition; E87.6 Hypokalemia; E87.1 Hypo-osmolality and hyponatremia; J43.9 Emphysema, unspecified; T38.0X5A Adverse effect of glucocorticoids and synthetic analogues, initial encounter; N40.0 Benign prostatic hyperplasia without lower urinary tract symptoms; K21.9 Gastro-esophageal reflux disease without esophagitis; G82.50 Quadriplegia, unspecified; H54.7 Unspecified visual loss; E10.22 Type 1 diabetes mellitus with diabetic chronic kidney disease; Z99.2 Dependence on renal dialysis; Z93.1 Gastrostomy status; Z93.0 Tracheostomy status; Z87.891 Personal history of nicotine dependence; Z86.73 Personal history of transient ischemic attack (TIA), and cerebral infarction without residual deficits; Z87.01 Personal history of pneumonia (recurrent); Z86.14 Personal history of Methicillin resistant Staphylococcus aureus infection; Z79.4 Long term (current) use of insulin; Z79.899 Other long term (current) drug therapy; Z88.0 Allergy status to penicillin
CPT/HCPCS: 49405; 71045; 74176; 76705; 80048; 80053; 80076; 82948; 83690; 85025; 85027; 85610; 86706; 87040; 87070; 87075; 87077; 87081; 87147; 87186; 87205; 87340; 87493; 87641; 94002; 94003; 94640; 94640 76; 94760; 99202; 99281; 99285; C1729; C1769; J0692; J1644; J1815; J2930; J3010; J7042; J7512; P9047; S0030; S0074